=== PATIENT | male | born 1975 | race Caucasian/White ===

== ENCOUNTER 2019-04-22 10:37 | Emergency (ER) | payer BC ==
--- NOTE | 2019-04-22 12:12 | EDM.PDOC ---
ED HPI GENERAL MEDICAL PROBLEM - General Chief Complaint: Chest Pain Stated Complaint: CHEST PAIN Time Seen by Provider: 04/22/19 11:47 Source of Information: Reports: Patient, RN Notes Reviewed History Limitations: Reports: No Limitations - History of Present Illness INITIAL COMMENTS - FREE TEXT/NARRATIVE: Patient is a 44-year-old male who presents with his to the ED for the evaluation of intermittent chest pain. Patient notes this is on the left side of his chest, and this is been happening since Saturday. He notes that on Saturday he noticed some chest pressure, and his left arm was tingly intermittently. Saturday again he had the chest pressure that he would characterize more of a squeezing or viselike pressure in nature. Saturday he states he developed some pain between his shoulder blades as well. He went to the chiropractor Saturday, as he has chronic problems with his back, but the pain did not get much better. He notes that he does have a prior family history of heart failure in his father, and his cousin recently had an OR. He does note that he gets exhausted with minimal exertion. 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 He notes that he has not been doing much heavy lifting as well, as this seems to aggravate the the shortness of breath with activity. He further characterizes a feeling of fluttering in his chest from time to time. There is nothing that seems to aggravate this or make this better. His primary care provider would be Dr. Cleve Ledbetter. He does not smoke, he does not drink, nor does he use drugs. He also relates that there is no increased stress in his life. Left Chest Pain Score (Numeric/FACES): 5 - Related Data Allergies Allergy/AdvReac Type Severity Reaction Status Date / Time No Known Allergies Allergy Verified 04/22/19 10:49 Home Meds: Home Meds Chlorhexidine Gluconate [Chlorhexidine Gluconate 0.12% Rinse] 1 ml GARGLE BID [History] Past Medical History - Past Health History Medical/Surgical History: Denies Medical/Surgical History Social & Family History - Tobacco Use Smoking Status *Q: Never Smoker - Caffeine Use Caffeine Use: Reports: Coffee - Recreational Drug Use Recreational Drug Use: No ED ROS GENERAL - Review of Systems Review Of Systems: See Below Constitutional: Denies: Fever, Chills, Diaphoresis, Weight Gain Respiratory: Reports: Shortness of Breath (with exertion). Denies: Cough Cardiovascular: Reports: Chest Pain (Left sided chest discomfort/pressure), Dyspnea on Exertion, Palpitations (feels heart "fluttering:). Denies: Blood Pressure Problem, Lightheadedness, Orthopnea GI/Abdominal: Denies: Abdominal Pain, Diarrhea, Nausea, Vomiting Musculoskeletal: Reports: Back Pain (between shoulder blades) Neurological: Denies: Headache ED EXAM, GENERAL - Physical Exam Exam: See Below Exam Limited By: No Limitations General Appearance: Alert, WD/WN, No Apparent Distress Eye Exam: Bilateral Eye: EOMI, Normal Inspection, PERRL Throat/Mouth: Normal Inspection, Normal Lips, Normal Teeth, Normal Gums, Normal Oropharynx, Normal Voice, No Airway Compromise Head: Atraumatic, Normocephalic Neck: Normal Inspection Respiratory/Chest: No Respiratory Distress, Lungs Clear, Normal Breath Sounds, No Accessory Muscle Use, Chest Non-Tender Cardiovascular: Normal Peripheral Pulses, Regular Rate, Rhythm, No Edema, No Murmur Peripheral Pulses: 3+: Radial (L), Radial (R) GI/Abdominal: Normal Bowel Sounds, Soft, Non-Tender, No Distention, No Mass Back Exam: Normal Inspection, Full Range of Motion Extremities: Normal Inspection, Normal Capillary Refill Neurological: Alert, Oriented, Normal Cognition, No Motor/Sensory Deficits Psychiatric: Normal Affect, Normal Mood Skin Exam: Warm, Dry, Intact, Normal Color, No Rash EKG INTERPRETATION EKG Date: 04/22/19 Time: 12:14 Rhythm: NSR Rate (Beats/Min): 91 [place]: Normal P-Wave: Present QRS: Normal ST-T: Normal QT: Normal Comparison: NA - No Prior EKG EKG Interpretation Comments: EKG reviewed with Dr. Tamayo, and by myself, no acute ischemic changes noted. Course - Vital Signs Last Recorded V/S: Last Vital Signs Temp 98.6 F 04/22/19 10:45 Pulse 81 04/22/19 10:45 Resp 16 04/22/19 10:45 BP 122/95 H 04/22/19 10:45 Pulse Ox 96 04/22/19 10:45 - Orders/Labs/Meds Orders: Active Orders 24 hr Category Date Time Status EKG Documentation Completion [RC] STAT Care 12/11/19 11:17 Active Chest 2V [CR] Stat Exams 04/22/19 12:03 Ordered Labs: Laboratory Tests 04/22/19 04/22/19 04/22/19 Range/Units 10:55 10:55 10:55 WBC 6.69 (4.23-9.07) K/mm3 RBC 5.19 (4.63-6.08) M/mm3 Hgb 15.0 (13.7-17.5) gm/dl Hct 44.2 (40.1-51.0) % MCV 85.2 (79.0-92.2) fl MCH 28.9 (25.7-32.2) pg MCHC 33.9 (32.2-35.5) g/dl RDW Std Deviation 39.8 (35.1-43.9) fL Plt Count 298 (163-337) K/mm3 MPV 9.3 L (9.4-12.3) fl Neut % (Auto) 68.4 H (34.0-67.9) % Lymph % (Auto) 22.7 (21.8-53.1) % [place] % (Auto) 7.3 (5.3-12.2) % Eos % (Auto) 1.2 (0.8-7.0) Baso % (Auto) 0.3 (0.1-1.2) % Neut # (Auto) 4.57 (1.78-5.38) K/mm3 Lymph # (Auto) 1.52 (1.32-3.57) K/mm3 [place] # (Auto) 0.49 (0.30-0.82) K/mm3 Eos # (Auto) 0.08 (0.04-0.54) K/mm3 Baso # (Auto) 0.02 (0.01-0.08) K/mm3 PT 10.9 (9.7-12.0) SECONDS INR 1.00 APTT 29 (22-31) SECONDS Sodium 139 (136-145) mEq/L Potassium 4.2 (3.5-5.1) mEq/L Chloride 103 (98-107) mEq/L Carbon Dioxide 26 (21-32) mEq/L Anion Gap 14.2 (5-15) BUN 17 (7-18) mg/dL Creatinine 1.3 (0.7-1.3) mg/dL Est Cr Clr Drug Dosing 70.88 mL/min Estimated GFR (MDRD) > 60 (>60) mL/min BUN/Creatinine Ratio 13.1 L (14-18) Glucose 93 (74-106) mg/dL Calcium 9.1 (8.5-10.1) mg/dL Total Bilirubin 0.5 (0.2-1.0) mg/dL AST 15 (15-37) U/L ALT 37 (16-63) U/L Alkaline Phosphatase 51 (46-116) U/L Troponin I < 0.017 (0.00-0.056) ng/mL Total Protein 7.8 (6.4-8.2) g/dl Albumin 4.3 (3.4-5.0) g/dl Globulin 3.5 gm/dL Albumin/Globulin Ratio 1.2 (1-2) - Re-Assessments/Exams Free Text/Narrative Re-Assessment/Exam: 04/22/19 12:11 Patient presents to the ED for the evaluation of chest pain. Labs were done per triage nurse, CBC, CMP, troponin were drawn and were within normal limits. EKG was also taken, and demonstrates normal sinus rhythm at a rate of 91, with no acute ischemic changes noted. Did order coagulation studies, and a chest x- ray to be obtained for further evaluation. Coagulation studies are also within normal limits. Chest x-ray is pending at this time. This appears to be stable angina possibly. Did discuss the course of treatment with patient and . Will likely send the patient home with outpatient order for stress test, and possible 48-hour Holter for evaluation of his heart fluttering. They are okay with this plan at this time. 04/22/19 12:56 This x-ray is done, and there is no obvious sign of any sort of cardiomegaly. This was done as a 2 view. Official radiology read is pending at this time. I will discharge the patient home with the plan as noted above. Departure - Departure Time of Disposition: 12:57 Disposition: Home, Self-Care 01 Condition: Good Clinical Impression: Chest discomfort, SOB (shortness of breath) on exertion Instructions: Exercise Stress Test, [id number] Referrals: Cleve Ledbetter Jr, MD [Primary Care Provider] - Forms: ED Department Discharge Additional Instructions: You were evaluated in the ER today regarding your chest pain. Your laboratory evaluation, EKG, and chest x-ray appear to be within normal limits at today's visit. You are not suffering from a heart attack at today's visit. You have been given an outpatient order for a stress test, this will help further evaluate your heart to see if your symptoms might be due to any cardiac etiology. You have also been sent home with a 48-hour Holter monitor, to monitor your heart's electrical rhythm for the next 48 hours. Please try to wear as much as possible, and maintain regular activities during this time. You will have to follow-up with your regular provider, Dr. Cleve Ledbetter, for results from these tests. Please schedule an appointment after these tests are done, so that you may discuss results with him. Recommend 1 week after testing is finished. Please return to the ER at any time if your symptoms change or worsen. Sepsis Event Note - Evaluation Sepsis Screening Result: No Definite Risk - Focused Exam Vital Signs: Vital Signs Temp Pulse Resp BP Pulse Ox 04/22/19 10:45 98.6 F 81 16 122/95 H 96 Date Exam was Performed: 04/22/19 Time Exam was Performed: 12:56 - My Orders Last 24 Hours: My Active Orders 04/22/19 11:17 EKG Documentation Completion [RC] STAT 04/22/19 12:03 Chest 2V [CR] Stat - Assessment/Plan Last 24 Hours: My Active Orders 04/22/19 11:17 EKG Documentation Completion [RC] STAT 04/22/19 12:03 Chest 2V [CR] Stat
--- NOTE | 2019-04-23 10:20 | CR ---
Chest: Two views of the chest were obtained. Comparison: No prior chest x-ray. Heart size and mediastinum are normal. Lungs are clear. Bony structures are unremarkable. Impression: 1. Nothing acute is seen on two-view chest x-ray. Diagnostic code #1 This report was dictated in [place] Standard Time
== END 2019-04-22 13:13 | disposition home or self-care (01) ==
LOC: JD.ED 10:37
DX: R07.89 Other chest pain (principal); R06.02 Shortness of breath
CPT/HCPCS: 36415; 71046; 71046-26; 80053; 84484; 85025; 85610; 85730; 93005; 93010; 93225; 93226; 99284; 99285-25